=== PATIENT | female | born 1990 | race Caucasian/White ===

== ENCOUNTER 2025-09-27 10:34 | Emergency (ER) | payer OTHER ==
[2025-09-27 12:13] LABS: Absolute Lymphocytes (CBC) 3.1 K/uL (0.7-4.9); Hematocrit 37.0 % (36.0-45.0); Hemoglobin 12.4 g/dL (12.0-15.0); MCH 29.5 pg (27.0-35.0); MCHC 33.5 g/dL (32.0-36.0); MCV 87.9 fL (80-100); MPV 7.5 fL (7.6-11.3); Nucleated RBC Absolute Count 0.0 (0-0); Nucleated Red Blood Cells % 0.0 % (0-0); RBC Red Blood Cell Count 4.20 M/uL (3.86-4.86); White Blood Count 10.10 thou/uL (4.3-10.9)
[2025-09-27 12:20] LABS: PT Prothrombin Time 13.1 SECONDS (10-13.0); Protime INR 1.16
--- NOTE | 2025-09-27 12:33 | RAD REPORT ---
EXAMINATION: ONE VIEW CHEST XR CLINICAL INDICATION: Female, 35 years old.,CHEST PAIN TECHNIQUE: Frontal chest projection is submitted. Examination is limited by patient positioning and t echnique. COMPARISON: No prior exam. FINDINGS: The lungs are well inflated and clear. No pneumothorax or sizable effusion. The heart is normal in s ize. Mediastinal contours are unremarkable. IMPRESSION: No acute intrathoracic abnormalities.
[2025-09-27 12:35] LABS: ALT/SGPT 25 U/L (13-56); AST/SGOT 23 U/L (15-37); Albumin 3.6 g/dL (3.4-5.0); Albumin/Globulin Ratio 0.8 (1.1-1.8); Alkaline Phosphatase 65 U/L (45-117); Anion Gap 11.0 mEq/L (5.0-15.0); BUN Blood Urea Nitrogen 9 mg/dL (7-18); Globulin 4.6 g/dL (2.3-3.5); Glucose Level 93 mg/dL (74-106); Magnesium 1.8 mg/dL (1.6-2.4); NT PRO-BNP 14 pg/mL (<125); Potassium 4.0 mEq/L (3.5-5.1); Troponin High Sensitivity 5.1 pg/mL (<58.9)
[2025-09-27 12:42] LABS: Bilirubin Indirect, Calculated 0.1 mg/dL (0.2-0.8)
[2025-09-27] MEDS ORDERED: ASPIRIN 81 MG CHEWABLE TABLET ONE (13:09)
--- NOTE | 2025-09-27 14:18 | EDPHYS ---
Physician Documentation [facility] Name: Colleen Delgado Age: 35 yrs Sex: Female : 1990 Arrival Date: 09/27/2025 Time: 10:34 Bed 10 Private MD: ED Physician Hal Mckeon HPI: 09/27 10:49 This 35 yrs old Female presents to ER via Unassigned with complaints of Chest Pain. sb4 10:49 Patient reports left-sided chest pain that radiates to the left arm that began this sb4 morning while she was doing nonstrenuous work. States that she took some ibuprofen which did improve her pain. States she still has a little bit of a numbness/tingling sensation in her left shoulder. Denies any pertinent medical history or cardiac history. States that she did take Lipitor for a short amount of time, but was taken off of it because her cholesterol improved. Denies any history of hypertension, diabetes. 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 - Infectious Disease History:: Denies. - Social history:: Smoking status: Reported history of juuling and/or vaping. ROS: 10:49 Constitutional: Negative for fever, chills, and weight loss, sb4 10:49 Cardiovascular: Positive for chest pain, 10:49 All other systems are negative, Exam: 10:49 Constitutional: This is a well developed, well nourished patient who is awake, alert, sb4 and in no acute distress. Head/Face: Normocephalic, atraumatic. Eyes: Extra-ocular motions intact. Periorbital areas with no swelling, redness, or edema. ENT: Mucous membranes moist. Cardiovascular: Regular rate and rhythm with a normal S1 and S2. Respiratory: No increased work of breathing, no retractions or nasal flaring. Abdomen/GI: Soft, non-tender, no distension. Skin: Warm, dry with normal turgor. Normal color with no rashes, no lesions, and no evidence of cellulitis. Vital Signs: 10:48 BP 152 / 78; Pulse 62; Resp 18; Pulse Ox 100% on R/A; Weight 97.52 kg; Height 5 ft. 2 ap3 in. ; Pain 5/10; 14:35 BP 142 / 82; Pulse 57; Resp 16; Pulse Ox 100% on R/A; ap3 10:48 Body Mass Index 39.32 (97.52 kg, 157.48 cm) ap3 10:48 Pain Scale: Adult ap3 MDM: 10:45 Medical Screening Exam initiated sb4 10:49 Differential diagnosis: anxiety, electrolyte abnormality, ACS, thyroid dysfunction, sb4 hypovolemia. 14:17 Data reviewed: vital signs, nurses notes, lab test result(s), EKG, radiologic studies, sb4 and as a result, I will discharge patient. Scoring Tools HEART Score: History: ECG: Age: Risk Factors: 1 or 2 risk factors (1), Troponin: Total Score = 1. Counseling: I had a detailed discussion with the patient and/or guardian regarding the historical points, exam findings, and any diagnostic results supporting the discharge/admit diagnosis, the presence of at least one elevated blood pressure reading (>120/80) during this emergency department visit, lab results, radiology results, the need for outpatient follow up, for definitive care, to return to the emergency department if symptoms worsen or persist or if there are any questions or concerns that arise at home. 09/27 10:49 Order name: Basic Metabolic Panel; Complete Time: 12:42 sb4 09/27 10:49 Order name: CBC with Diff; Complete Time: 12:16 sb4 09/27 10:49 Order name: LFT's; Complete Time: 12:42 sb4 09/27 10:49 Order name: Magnesium; Complete Time: 12:42 sb4 09/27 10:49 Order name: NT PRO-BNP; Complete Time: 12:42 sb4 09/27 10:49 Order name: PT-INR; Complete Time: 12:24 sb4 09/27 10:49 Order name: Troponin HS; Complete Time: 12:42 sb4 09/27 10:49 Order name: Test, Serum; Complete Time: 12:36 sb4 09/27 10:51 Order name: TSH; Complete Time: 12:39 sb4 09/27 13:11 Order name: Troponin High Sensitivity; Complete Time: 14:08 sb4 09/27 10:49 Order name: XRAY Chest (1 view); Complete Time: 12:37 sb4 09/27 10:49 Order name: Cardiac monitoring; Complete Time: 14:35 sb4 09/27 10:49 Order name: EKG - Nurse/Tech; Complete Time: 11:27 sb4 09/27 10:49 Order name: IV Saline Lock; Complete Time: 12:07 sb4 09/27 10:49 Order name: Labs collected and sent; Complete Time: 12:07 sb4 09/27 10:49 Order name: O2 Per Protocol; Complete Time: 14:35 sb4 09/27 10:49 Order name: O2 Sat Monitoring; Complete Time: 14:35 sb4 EC:54 Rate is 59 beats/min. Rhythm is regular, Sinus bradycardia. GA interval is normal at sb4 145 msec. QRS interval is normal at 95 msec. QT interval is normal at 416 msec. No Q waves. T waves are Normal. No ST changes noted. Clinical impression: Normal ECG. Interpreted by me. Reviewed by me. Administered Medications: 13:10 CANCELLED (Physician Discretion): ns 0.9% 1000 ml IV at 1000 ml once; to be given as a sb4 bolus over 60 minutes 13:39 Drug: Aspirin PO Chewable Tablet 324 mg PO once; 81 mg tablets x 4 Route: PO; ap3 14:37 Follow up: Response: No adverse reaction ap3 Disposition: 18:23 I was immediately available on-site in the Emergency Department for consultation in the ms3 care of the patient. Disposition Summary: 09/27/25 14:17 Discharge Ordered Notes: Location: Home sb4 Problem: new sb4 Symptoms: have improved sb4 Condition: Stable sb4 Diagnosis - Chest pain, unspecified sb4 Followup: sb4 - With: Emergency Department - When: As needed - Reason: Trouble breathing, Worsening of condition Discharge Instructions: - Discharge Summary Sheet sb4 - Nonspecific Chest Pain, Adult, [id number] sb4 Forms: - Patient Portal Instructions sb4 - Leadership Thank You Letter sb4 Signatures: Dispatcher SyedHo Halima Salgado RN RN ap3 Hal Mckeon DO DO ms3 Chantel Rockwell PA-C PA-C sb4 Corrections: (The following items were deleted from the chart) 10:49 10:49 BASIC METABOLIC PANEL+C.LAB.BRZ ordered. EDMS EDMS 10:49 10:49 CBC+H.LAB.BRZ ordered. EDMS EDMS 10:49 10:49 HEPATIC FUNCTION+C.LAB.BRZ ordered. EDMS EDMS 10:49 10:49 MAGNESIUM+C.LAB.BRZ ordered. EDMS EDMS 10:49 10:49 PROBNP+C.LAB.BRZ ordered. EDMS EDMS 10:49 10:49 PROTIME (+INR)+COAG.LAB.BRZ ordered. EDMS EDMS 10:49 10:49 Troponin High Sensitivity+C.LAB.BRZ ordered. EDMS EDMS 10:49 10:49 TEST, SERUM+SC.LAB.BRZ ordered. EDMS EDMS 10:49 10:49 Chest Single View+RAD.RAD.BRZ ordered. EDMS EDMS 13:10 10:51 NS 0.9% IV 1000 ml IV at 1000 ml once; to be given as a bolus over 60 minutes sb4 ordered. sb4 13:11 13:11 Troponin High Sensitivity+C.LAB.BRZ ordered. EDMS EDMS
--- NOTE | 2025-09-27 14:18 | ER ---
Nurse's Notes [facility] Name: Colleen Delgado Age: 35 yrs Sex: Female : 1990 Arrival Date: 09/27/2025 Time: 10:34 Bed 10 Private MD: Diagnosis: Chest pain, unspecified Presentation: 09/27 10:48 Chief complaint: Patient states: she started having chest pain that radiated into her ap3 left arm this morning when at work. patient currently rates her pain as a 5/10 on the pain scale. Coronavirus screen: At this time, the client does not indicate any symptoms associated with coronavirus-19. Ebola Screen: No symptoms or risks identified at this time. Initial Sepsis Screen: Does the patient meet any 2 criteria? No. Patient's initial sepsis screen is negative. Does the patient have a suspected source of infection? No. Patient's initial sepsis screen is negative. Risk Assessment: Do you want to hurt yourself or someone else? Patient reports no desire to harm self or others. Onset of symptoms was September 27, 2025. 10:48 Method Of Arrival: Ambulatory ap3 10:48 Acuity: GRANT 2 ap3 Triage Assessment: 10:50 General: Appears comfortable, Behavior is calm, cooperative, appropriate for age. Pain: ap3 Complains of pain in chest Pain radiates to left arm Pain currently is 5 out of 10 on a pain scale. Pain began this morning. Neuro: Level of Consciousness is awake, alert, obeys commands, Oriented to person, place, time, situation, Appropriate for age. Cardiovascular: Reports chest pain. Respiratory: Airway is patent Respiratory effort is even, unlabored, Respiratory pattern is regular, symmetrical. 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 - Infectious Disease History:: Denies. - Social history:: Smoking status: Reported history of juuling and/or vaping. Screenin:51 [facility] ED Fall Risk Assessment (Adult) History of falling in the last 3 months, ap3 including since admission No falls in past 3 months (0 pts) Confusion or Disorientation No (0 pts) Intoxicated or Sedated No (0 pts) Impaired Gait No (0 pts) Mobility Assist Device Used No (0 pt) Altered Elimination No (0 pt) Score/Fall Risk Level 0 - 2 = Low Risk Oriented to surroundings, Maintained a safe environment, Educated pt \T\ family on fall prevention, incl call for assistance when getting out of bed, Assessed \T\ reinforced patient's understanding of fall precautions, Hourly rounding (assess needs \T\ fall precautionary measures) done, Used ambulatory aids as needed (educated on \T\ assisted with). Abuse screen: Denies threats or abuse. Nutritional screening: No deficits noted. Tuberculosis screening: No symptoms or risk factors identified. Vital Signs: 10:48 BP 152 / 78; Pulse 62; Resp 18; Pulse Ox 100% on R/A; Weight 97.52 kg; Height 5 ft. 2 ap3 in. ; Pain 5/10; 14:35 BP 142 / 82; Pulse 57; Resp 16; Pulse Ox 100% on R/A; ap3 10:48 Body Mass Index 39.32 (97.52 kg, 157.48 cm) ap3 10:48 Pain Scale: Adult ap3 ED Course: 10:36 Patient arrived in ED. mr 10:38 Chantel Rockwell PA-C is PHCP. sb4 10:38 Hal Mckeon DO is Attending Physician. sb4 10:50 Triage completed. ap3 10:51 Arm band placed on left wrist. ap3 10:51 Patient maintains SpO2 saturation greater than 95% on room air. ap3 11:39 XRAY Chest (1 view) In Process Unspecified. EDMS 12:07 TSH Sent. bc6 12:07 Test, Serum Sent. bc6 12:07 Basic Metabolic Panel Sent. bc6 12:07 CBC with Diff Sent. bc6 12:07 LFT's Sent. bc6 12:08 Magnesium Sent. bc6 12:08 NT PRO-BNP Sent. bc6 12:08 PT-INR Sent. bc6 12:08 Troponin HS Sent. bc6 12:08 Initial lab(s) drawn, by ny, sent to lab. Inserted saline lock: 24 gauge in right bc6 antecubital area, using aseptic technique. Blood collected. Flushed with 10 mL NS. 14:36 Patient has correct armband on for positive identification. Bed in low position. Call ap3 light in reach. Side rails up X 1. Provided Education on: discharge instructions. Pulse ox on. NIBP on. 14:36 No provider procedures requiring assistance completed. IV discontinued, intact, ap3 bleeding controlled, No redness/swelling at site. Pressure dressing applied. Administered Medications: 13:10 CANCELLED (Physician Discretion): ns 0.9% 1000 ml IV at 1000 ml once; to be given as a sb4 bolus over 60 minutes 13:39 Drug: Aspirin PO Chewable Tablet 324 mg PO once; 81 mg tablets x 4 Route: PO; ap3 14:37 Follow up: Response: No adverse reaction ap3 Medication: 14:37 VIS not applicable for this client. ap3 Outcome: 14:17 Discharge ordered by . sb4 14:36 Discharged to home ambulatory, ap3 14:36 Condition: good 14:36 Discharge instructions given to patient, Instructed on discharge instructions, follow up and referral plans. Demonstrated understanding of instructions, follow-up care, 14:37 Patient left the ED. ap3 Signatures: Dispatcher [employer] EDMS Roxie Barrett, Reg Reg mr Halima Em, RN RN ap3 Chatnel Rockwell PA-C PANimo sb4 Monserrat Olivera
[2025-09-27 19:02] VITALS: O2SAT 100
[2025-09-27 19:08] VITALS: BP 142/82
== END 2025-09-27 14:37 | disposition home or self-care (01) ==
LOC: ER 10:34
DX: R07.9 Chest pain, unspecified (principal); E78.00 Pure hypercholesterolemia, unspecified
CPT/HCPCS: 36415; 71045; 80048; 80076; 83735; 83880; 84443; 84484; 84703; 85025; 85610; 93005; 99284